=== PATIENT | female | born 1995 | race Caucasian/White ===

== ENCOUNTER 2019-02-12 12:47 | Outpatient (CLI) | payer OTHER ==
[~2019-02-12] VITALS: Ht 157.5 cm; Wt 75.0 kg
[2019-02-12 13:06] VITALS: Ht 157.5 cm; Wt 75.0 kg
[2019-02-12 13:07] VITALS: BP 118/58; PULSE 69; RESP 20
== END 2019-02-12 15:45 | disposition home or self-care (01) ==
LOC: OBT 12:47 → L-D 12:49 → OBT 15:45
PROVIDERS: ATTEND Obstetrics & Gynecology Gynecology
DX: O41.92X0 Disorder of amniotic fluid and membranes, unspecified, second trimester, not applicable or unspecified (principal); Z3A.20 20 weeks gestation of pregnancy
CPT/HCPCS: 76815; 76817; 81001; Z7500; G0463